=== PATIENT | female | born 1955 | race Caucasian/White ===

== ENCOUNTER → 2016-10-10 | Outpatient (CLI) | payer MEDICARE, MEDICAID ==
[~2016-10-10] MED LIST: ALBUTEROL-200 PUFFS/ IH; ALPRAZOLAM1 MG PO; BACLOFEN10 MG PO; BUPRENORPHINE H1 TA2 SL; DOXYCYCLINE HY100 M4 PO; GABAPENTIN 400400 MG PO; HYDROCHLOROTH12.5 M1 PO; IBU800 MG PO; KAPIDEX60 MG PO; KLOR-CON M2020 MEQ PO; MONTELUKAST SOD10 MG PO; MOTRIN800 MG PO; NAPROXEN SODIU500 MG PO; OXYCODONE HYDRO10 M2 PO; VIIBRYD40 MG PO
--- NOTE | 2016-10-11 09:24 | RADIOLOGY REPORT PS360 ---
LUMBAR SPINE-2 TO 3 VIEWS ORDERING PHYSICIAN : Riccardo Sánchez MD PATIENT AGE: 60 years GENDER: Female INDICATION: MYELOPATHY, PATIENT COULD NOT TOLERATE EXAM TECHNIQUE: Lateral sitting upright crosstable lateral lumbar spine COMPARISON: CT lumbar spine 09/22/2016 FINDINGS A single lateral sitting upright film performed contemplating possibility of upright lumbar puncture approach. Small skin markers are seen posterior to L3. However as discussed below the patient was unable to change from this position-would not move from the sitting position , and cannot perform other positioning required for myelogram procedure and for CT imaging today.. Also She could not hold still due to her severe pain This lateral view does reveal the superior narrowing at L4/5 disc space with the posterior marginal osteophyte encroach upon the spinal canal as seen on CT 09/22/2016. Superior endplate compression at L5 also suggested on this plain film appears similar if not very slightly progressive since 09/22/2016 CT. Patient does warrant workup for potential discitis prior to spine procedures A stimulator device is noted projecting over the sacrum. Added Discussion: This patient was scheduled for a lumbar myelogram with cervical myelogram and postmyelogram CT but this was unable to be performed due to the patient's very severe pain and inability to proceed conscious sedation under my direction, because of her Suboxone which would block all opioid pain medications. . Patient was was in severe pain at presentation-and report significant increased pain since previous 09/22/2016 CT. She was Unable to lay on either stomach nor side and thus we were unable to perform lumbar puncture and myelogram. She would not remain still due to the pain . Thus Unable to perform myelogram due to such. Also She could not lay on her back for the CT scanner . Patient could not lie flat on the CT table either for simple CT postcontrast lumbar study... With this we canceled additional procedures today . I initially discussed the patient with Dr. Gonzalo Chin ... Patient is known to them. I note with this discussion that previous CT report raised possibility of discitis process L4/5 however no white count or sedimentation rate available at that office on this discussion. . Thus, with exploring Conscious sedation options I also called to discuss the patient with her pain management provider. Patient is on Suboxone in with this our standard pain medications that I utilized for conscious sedation would not be blocked and be effective.. It became apparent that this is unusually complex case due to her stimulator preventing MRI and her Suboxone limiting her pain management options, and her very severe pain prohibiting her ability to perform studies today. Given this patient's complexity we arranged for her follow-up with her pain management doctor over the next few days and he will further evaluate. Given the unique complexity of this case if continued desire myelogram then would recommended referral to a tertiary center such as [facility] to perform myelogram under appropriate general sedation or possibly other form anesthesia, as patient cannot have received standard opioid medication which we would use for conscious sedation our [facility] [place]. This case is beyond the scope of our services at [facility] I personally spent nearly a total of 1 hour working with this patient-obtaining a long history from her with her complex case, performed Limited physical exam, & then attempting to position her for myelogram and subsequently considering only CT,... I personally made phone calls and discussed her situation with 2 the physician's offices taking care of her. ----- IMPRESSION 1. Due to patient's very severe pain.-She could not tolerate laying on CT study,; & clearly unable to tolerate or position as required for myelogram procedure. Thus as discussed above these studies were canceled for today & patient to follow-up with her pain management physician over the next few days. 2. A single crosstable lateral spine radiograph, with patient sitting upright obtained today again shows a disc space narrowing at L4/5. Again note the posterior osseous protrusion/prominence at posterior, superior corner L5 which contributed to the severe L4/5 spinal stenosis discussed on recent CT lumbar spine... 3. Also again note superior endplate compression at L5 which if anything appears more pronounced on today's very limited crosstable lateral, when compared to waste baler views from recent CT study from 09/22/2016. *As discussed in prior CT report this patient warrants and requires workup to exclude discitis.* . ( Please fax this report to Dr. Wong pain management office; and Dr. Sánchez BG office in [place])
== END ==
LOC: RAD 10-03 13:00
DX: M54.5 Low back pain (principal); M54.2 Cervicalgia